=== PATIENT | female | born 1985 | race Caucasian/White ===

== ENCOUNTER 2018-01-26 19:14 | Emergency (ER) | payer OTHER ==
[~2018-01-26] VITALS: Ht 167.6 cm; Wt 68.0 kg
[2018-01-26] MEDS ORDERED: CLEOCIN HCL300 MG (19:25)
== END 2018-01-26 22:01 | disposition home or self-care (01) ==
LOC: ER 19:14
DX: R60.0 Localized edema (principal); I82.4Z1 Acute embolism and thrombosis of unspecified deep veins of right distal lower extremity

== ENCOUNTER → 2021-10-08 | Emergency (ER) | payer OTHER ==
[~2021-10-08] VITALS: Ht 167.6 cm; Wt 72.6 kg
[~2021-10-08] MED LIST: CLEOCIN HCL300 MG; TAMS0.4C PO
== END | disposition home or self-care (01) ==
LOC: ER 17:09
DX: N39.0 Urinary tract infection, site not specified (principal)

== ENCOUNTER 2021-10-12 12:11 | Emergency (ER) | payer OTHER ==
[~2021-10-12] VITALS: Ht 167.6 cm; Wt 72.6 kg
[~2021-10-12 12:11] MED LIST changes: -TAMS0.4C PO
[2021-10-12] MEDS ORDERED: TAMS0.4C PO (19:52)
== END 2021-10-12 20:12 | disposition home or self-care (01) ==
LOC: ER 12:11
DX: N23 Unspecified renal colic (principal); R31.9 Hematuria, unspecified; Z88.1 Allergy status to other antibiotic agents; Z88.2 Allergy status to sulfonamides; Z20.822 Contact with and (suspected) exposure to COVID-19

== ENCOUNTER 2021-10-19 08:51 | Outpatient (CLI) | payer OTHER ==
[~2021-10-19 08:51] MED LIST changes: +TAMS0.4C PO
== END 2021-10-19 09:00 | disposition home or self-care (01) ==
LOC: TOM 08:51
PROVIDERS: ATTEND General Practice
DX: R31.9 Hematuria, unspecified (principal); N23 Unspecified renal colic

== ENCOUNTER 2021-10-23 10:44 | Emergency (ER) | payer OTHER ==
[~2021-10-23] VITALS: Ht 167.6 cm; Wt 72.6 kg
== END 2021-10-23 14:57 | disposition home or self-care (01) ==
LOC: ER 10:44
DX: R42 Dizziness and giddiness (principal); Z88.2 Allergy status to sulfonamides; Z88.8 Allergy status to other drugs, medicaments and biological substances

== ENCOUNTER 2023-08-17 14:22 | Emergency (ER) | payer OTHER ==
[~2023-08-17] VITALS: Ht 167.6 cm; Wt 68.0 kg
[2023-08-17] MEDS ORDERED: ALBUTEROL SULFATE 3 ML/2.5 MG AMPUL.NEB IH SCH (17:15)
[2023-08-17] MEDS ORDERED: HYDROCODONE/CHLORPHEN P-STIREX 5 ML ML PO ONE (17:15)
[2023-08-17] MEDS ORDERED: METHYLPREDNISOLONE SOD SUCC 125 MG VIAL IV ONE (17:15)
[2023-08-17] MEDS ORDERED: IPRATROPIUM BROMIDE 0.5 MG/2.5 ML AMPUL.NEB IH SCH (17:15)
[2023-08-17 18:18] LABS: HEMATOCRIT 37.9 % (36.0-45.00); HEMOGLOBIN 12.5 g/dL (12.0-15.00); MEAN CELL VOLUME 85.5 fL (80.00-100.00); MEAN CORPUSCULAR HEMOGLOBIN 28.3 pg (27.00-32.0); MEAN CORPUSCULAR HGB CONC 33.1 g/dl (32.0-36.0); PLATELET COUNT 307 K/uL (150-450); RED BLOOD COUNT 4.43 M/uL (4.00-6.00); RED CELL DISTRIBUTION WIDTH 12.9 % (11.5-14.5)
[2023-08-17 18:44] LABS: ALBUMIN 3.6 gm/dL (3.4-5.0); BILIRUBIN TOTAL 0.21 mg/dL (0.3-1.2); CALCIUM 9.2 mg/dL (8.5-10.1); CREATININE SERUM 0.66 mg/dL (0.55-1.02); GFR 101.33; GLOBULINA 4.1 G/DL (2.4-3.5); POTASSIUM 4.33 mEq/L (3.5-5.1); TOTAL PROTEIN 7.7 gm/dL (6.4-8.2)
== END 2023-08-17 21:48 | disposition home or self-care (01) ==
LOC: ER 14:22
PROVIDERS: Emergency Medicine
DX: J45.901 Unspecified asthma with (acute) exacerbation (principal); Z20.822 Contact with and (suspected) exposure to COVID-19

== ENCOUNTER 2023-08-19 17:15 | Emergency (ER) | payer OTHER ==
[~2023-08-19] VITALS: Ht 167.6 cm; Wt 68.0 kg
[2023-08-19] MEDS ORDERED: ONDANSETRON HCL 2 MG/ML VIAL IV ONE (18:45)
[2023-08-19] MEDS ORDERED: FAMOTIDINE/PF 20 MG/2 ML VIAL IV ONE (18:45)
[2023-08-19] MEDS ORDERED: 0.9 % SODIUM CHLORIDE 1,000 ML IV ONE (18:45)
[2023-08-19 19:23] LABS: HEMATOCRIT 40.3 % (36.0-45.00); HEMOGLOBIN 13.6 g/dL (12.0-15.00); MEAN CELL VOLUME 85.2 fL (80.00-100.00); MEAN CORPUSCULAR HEMOGLOBIN 28.7 pg (27.00-32.0); MEAN CORPUSCULAR HGB CONC 33.7 g/dl (32.0-36.0); PLATELET COUNT 307 K/uL (150-450); RED BLOOD COUNT 4.73 M/uL (4.00-6.00); RED CELL DISTRIBUTION WIDTH 12.8 % (11.5-14.5)
[2023-08-19 19:45] LABS: ALBUMIN 3.7 gm/dL (3.4-5.0); BILIRUBIN TOTAL 0.55 mg/dL (0.3-1.2); CALCIUM 9.1 mg/dL (8.5-10.1); CREATININE SERUM 0.63 mg/dL (0.55-1.02); GFR 106.92; GLOBULINA 4.2 G/DL (2.4-3.5); POTASSIUM 3.84 mEq/L (3.5-5.1); TOTAL PROTEIN 7.9 gm/dL (6.4-8.2)
[2023-08-19] MEDS ORDERED: PROMETHAZINE HCL 50 MG/ML AMPUL IM ONE (20:30)
[2023-08-19 22:08] LABS: PH,URINE 5.5 (5.0-8.0); URINE APPEARANCE Clear; URINE BILIRRUBIN Negative (NEGATIVE); URINE BLOOD Negative; URINE COLOR Yellow; URINE GLUCOSE Negative (NEGATIVE); URINE LEUKOCYTE Trace; URINE NITRATE Negative; URINE PROTEIN Negative (NEGATIVE); URINE UROBILINOGEN 0.2 E.U./dl
[2023-08-19 22:13] LABS: URINE BACTERIA 486.3 uL (0.0-1933); URINE EPITHELIAL CELLS 29.6 uL (0.0-38.8); URINE RBC 17.9 uL (0.0-20.8); URINE WBC 20.7 uL (0.0-23.2)
[2023-08-19] MEDS ORDERED: PEPCID AC20 MG PO (23:04)
[2023-08-19] MEDS ORDERED: INTESTINEX680 M1 PO (23:04)
[2023-08-19] MEDS ORDERED: ONDANSETRON ODT4 MG SL (23:04)
== END 2023-08-19 23:25 ==
LOC: ER 17:15
PROVIDERS: Nurse Practitioner Family
DX: R11.10 Vomiting, unspecified (principal); R19.7 Diarrhea, unspecified; Z88.2 Allergy status to sulfonamides; Z88.8 Allergy status to other drugs, medicaments and biological substances

== ENCOUNTER 2024-02-29 16:38 | Emergency (ER) | payer OTHER ==
[~2024-02-29] VITALS: Ht 167.6 cm; Wt 61.2 kg
[~2024-02-29 16:38] MED LIST changes: +INTESTINEX680 M1 PO; +ONDANSETRON ODT4 MG SL; +PEPCID AC20 MG PO
[2024-02-29] MEDS ORDERED: MINOCYCLINE HC100 M1 PO (16:40)
== END 2024-02-29 20:34 | disposition home or self-care (01) ==
LOC: ER 16:39
DX: R07.81 Pleurodynia (principal); Z88.2 Allergy status to sulfonamides

== ENCOUNTER 2024-08-03 13:44 | Emergency (ER) | payer OTHER ==
[~2024-08-03] VITALS: Ht 167.6 cm; Wt 63.5 kg
[~2024-08-03 13:44] MED LIST changes: +MINOCYCLINE HC100 M1 PO
[2024-08-03] MEDS ORDERED: KETOROLAC TROMETHAMINE 30 MG VIAL IM ONE (15:45)
[2024-08-03 16:57] LABS: PH,URINE 6.5 (5.0-8.0); URINE APPEARANCE Clear; URINE BILIRRUBIN Negative (NEGATIVE); URINE BLOOD Negative; URINE COLOR Dark Yellow; URINE GLUCOSE Negative (NEGATIVE); URINE KETONE Negative (NEGATIVE); URINE LEUKOCYTE Negative; URINE NITRATE Negative; URINE PROTEIN Negative (NEGATIVE); URINE UROBILINOGEN 0.2 E.U./dl
[2024-08-03 16:58] LABS: URINE EPITHELIAL CELLS 37.8 uL (0.0-38.8); URINE RBC 8.2 uL (0.0-20.8); URINE WBC 26.2 uL (0.0-23.2)
[2024-08-03 18:11] LABS: HEMATOCRIT 35.2 % (36.0-45.00); HEMOGLOBIN 11.8 g/dL (12.0-15.00); MEAN CELL VOLUME 88.4 fL (80.00-100.00); MEAN CORPUSCULAR HEMOGLOBIN 29.6 pg (27.00-32.0); MEAN CORPUSCULAR HGB CONC 33.5 g/dl (32.0-36.0); PLATELET COUNT 260 K/uL (150-450); RED BLOOD COUNT 3.98 M/uL (4.00-6.00)
[2024-08-03 18:28] LABS: ALBUMIN 3.8 gm/dL (3.4-5.0); BILIRUBIN TOTAL 0.32 mg/dL (0.3-1.2); CALCIUM 9.5 mg/dL (8.5-10.1); CREATININE SERUM 0.65 mg/dL (0.55-1.02); GFR 102.56; GLOBULINA 3.3 G/DL (2.4-3.5); POTASSIUM 4.23 mEq/L (3.5-5.1); TOTAL PROTEIN 7.1 gm/dL (6.4-8.2)
== END 2024-08-03 20:50 | disposition home or self-care (01) ==
LOC: ER 13:46
PROVIDERS: General Practice
DX: M79.602 Pain in left arm (principal); R07.9 Chest pain, unspecified; R00.2 Palpitations; M25.512 Pain in left shoulder; Z88.2 Allergy status to sulfonamides